=== PATIENT | female | born 1945 | race Caucasian/White ===

== ENCOUNTER → 2023-07-13 12:51 | Outpatient (REF) | payer MEDICARE, OTHER, SELFPAY | LOC: HWWDC 12:51 | PROVIDERS: ATTENDING PHYSICIAN Family Medicine; REFERRING PHYSICIAN Obstetrics & Gynecology Gynecology | DX: Z12.31 Encounter for screening mammogram for malignant neoplasm of breast (principal) | CPT/HCPCS: 77063; 77067 ==

== ENCOUNTER → 2023-12-08 04:00 | Outpatient (REF) | payer MEDICARE, OTHER, SELFPAY | LOC: DHSLP 04:00 | PROVIDERS: ATTENDING PHYSICIAN Family Medicine | DX: G47.33 Obstructive sleep apnea (adult) (pediatric) (principal) | CPT/HCPCS: 95800 ==

== ENCOUNTER → 2024-07-08 12:56 | Outpatient (REF) | payer MEDICARE, OTHER, SELFPAY | LOC: PAVMRI 12:56 | PROVIDERS: ATTENDING PHYSICIAN Orthopaedic Surgery Hand Surgery; FAMILY PHYSICIAN Family Medicine | DX: M19.011 Primary osteoarthritis, right shoulder (principal) | CPT/HCPCS: 73221 ==

== ENCOUNTER → 2024-08-02 14:45 | Outpatient (REF) | payer MEDICARE, OTHER, SELFPAY | LOC: HWWDC 14:45 | PROVIDERS: ATTENDING PHYSICIAN Family Medicine; REFERRING PHYSICIAN Obstetrics & Gynecology Gynecology | DX: Z78.0 Asymptomatic menopausal state (principal); Z12.31 Encounter for screening mammogram for malignant neoplasm of breast | CPT/HCPCS: 77063; 77067; 77080 ==

== ENCOUNTER → 2024-08-14 10:04 | Outpatient (REF) | payer MEDICARE, OTHER, SELFPAY | LOC: HWRCS 10:04 | PROVIDERS: ATTENDING PHYSICIAN Nurse Practitioner Adult Health | DX: R94.121 Abnormal vestibular function study (principal) | CPT/HCPCS: 93306 ==

== ENCOUNTER → 2024-08-26 07:52 | Outpatient (REF) | payer MEDICARE, OTHER, SELFPAY | LOC: RAD 07:52 | PROVIDERS: ATTENDING PHYSICIAN Orthopaedic Surgery Hand Surgery; FAMILY PHYSICIAN Family Medicine | DX: M19.011 Primary osteoarthritis, right shoulder (principal) | CPT/HCPCS: 73200 ==

== ENCOUNTER 2024-08-30 06:39 | Day surgery (SDC) | payer MEDICARE, OTHER, SELFPAY ==
[2024-08-08 14:09] LABS: Hematocrit 41.5 % (37.0-47.0); Hemoglobin 13.4 g/dL (12.0-16.0); Mean Corp Hgb Conc. 32.3 g/dL (33.0-37.0); Mean Corpuscular Hgb 28.6 pg (27.0-31.0); Mean Corpuscular Volume 88.5 fL (81.0-99.0); Mean Platelet Volume 9.9 fL (7.4-10.4); Platelet Count 232 10^3/uL (130-400); Red Blood Cell Count 4.69 10^6/uL (4.20-5.40); Red Cell Dist. Width 13.9 % (11.5-14.5); White Blood Cell Count 8.8 10^3/uL (4.8-10.8)
[2024-08-08 14:12] VITALS: BMI 36.3
[2024-08-08 14:33] LABS: ALT (SGPT) 18 U/L (0-35); AST (SGOT) 25 U/L (14-36); Albumin 4.5 g/dl (3.5-5.0); Alkaline Phosphatase 84 U/L (38-126); Blood Urea Nitrogen 23 mg/dl (7-17); Calcium 9.8 mg/dl (8.4-10.2); Carbon Dioxide 27 mmol/L (22-30); Chloride 104 mmol/L (98-107); Estimated Creatinine Clearance 55 ml/min; Glucose 100 mg/dl (70-99); Potassium 3.9 mmol/L (3.5-5.1); Sodium 142 mmol/L (135-145); Total Bilirubin 0.7 mg/dl (0.2-1.3); Total Protein 7.2 g/dl (6.3-8.2); eGFR > 60.00
[2024-08-08 15:03] LABS: Glycohemoglobin (HgbA1c) 5.6 % (4.0-5.6)
[2024-08-08 18:24] VITALS: BMI 36.3
--- NOTE | 2024-08-09 13:57 | PTCARENOTE ---
Patients 08/08 ECG abnormal- reviewed by Dr. Monterroso- no additional interventions required.
[2024-08-30] VITALS (9 sets, daily range): BP systolic 121–147; BP diastolic 55–74
[2024-08-30] MEDS: CELEBREX 200 MG PO (12:51)
[2024-08-30] MEDS: TYLENOL 1000 MG PO (12:52)
[2024-08-30] MEDS: NORMOSOL-R/PLASMALYTE-A 1000 IV (12:53)
--- NOTE | 2024-08-30 15:18 | W.DS.TRANS ---
DC Summary - [employer]
-
Discharge Instructions:
Sleep Apnea Risk Intermediate
Discharge Diagnosis/Procedures R WAYNE Mao 08/30/24
Diet As tolerated
Activity No strenuous activity
Driving Restrictions No driving
Instructions:
Stand-Alone Forms: SDS Total Shoulder D/C Inst.
Changes to Home Medications: Yes
Discharge Medications:
DC Medications w/original date entered in [facility]
albuterol sulfate 90 mcg/actuation aerosol inhaler 2 puff inhalation [id number] PRN SOB,Wheezes 08/07/24
amlodipine 10 mg tablet 5 mg PO HS 08/07/24
cholecalciferol (vitamin D3) 25 mcg (1,000 unit) tablet (Vitamin D3) 25 mcg PO HS 08/07/24
fexofenadine 180 mg tablet 180 mg PO DAILY 08/07/24
lisinopril 20 mg-hydrochlorothiazide 25 mg tablet 1 tab PO HS 08/07/24
pravastatin 40 mg tablet 40 mg PO HS 08/07/24
sertraline 50 mg tablet (Zoloft) 50 mg PO HS 08/07/24
dexamethasone 4 mg tablet 4 mg PO BID Anti-inflammatory #7 tabs 08/08/24
doxycycline monohydrate 100 mg capsule 100 mg PO BID #7 caps 08/08/24
famotidine 20 mg tablet (Pepcid) 20 mg PO HS #30 tabs 08/08/24
hydrocodone 5 mg-acetaminophen 325 mg tablet 1 - 2 tab PO Q6H PRN moderate-severe pain #30 tabs 08/08/24
mupirocin 2 % topical ointment 1 applic intranasal BID #1 tube 08/08/24
ondansetron HCl 4 mg tablet 4 mg PO Q6H PRN nausea and vomiting #30 tabs 08/08/24
Saccharomyces boulardii 250 mg capsule (Florastor) 250 mg PO BID #1 cap 08/30/24
acetaminophen 325 mg tablet (Tylenol) 650 mg (2 x 325 mg) PO QID #1 tab 08/30/24
aspirin 325 mg tablet 325 mg PO DAILY blood clot prevention #1 tab 08/30/24
docusate sodium 100 mg capsule (Colace) 100 mg PO BID stool softner #1 cap 08/30/24
fluticasone fur. 100 mcg-umeclid 62.5 mcg-vilant 25 mcg inhalat.powder (Trelegy Ellipta) 1 inh inhalation .QHS 08/30/24
magnesium hydroxide 400 mg/5 mL oral suspension (Milk of Magnesia) 30 ml PO HS PRN Constipation #1 mL 08/30/24
sennosides 8.6 mg tablet (Senokot) 17.2 mg (2 x 8.6 mg) PO BID laxative #2 tabs 08/30/24
Home Medication Changes
dexamethasone 4 mg tablet 4 mg PO BID Anti-inflammatory #7 tabs 08/08/24
doxycycline monohydrate 100 mg capsule 100 mg PO BID #7 caps 08/08/24
famotidine 20 mg tablet (Pepcid) 20 mg PO HS #30 tabs 08/08/24
hydrocodone 5 mg-acetaminophen 325 mg tablet 1 - 2 tab PO Q6H PRN moderate-severe pain #30 tabs 08/08/24
mupirocin 2 % topical ointment 1 applic intranasal BID #1 tube 08/08/24
ondansetron HCl 4 mg tablet 4 mg PO Q6H PRN nausea and vomiting #30 tabs 08/08/24
Saccharomyces boulardii 250 mg capsule (Florastor) 250 mg PO BID #1 cap 08/30/24
acetaminophen 325 mg tablet (Tylenol) 650 mg (2 x 325 mg) PO QID #1 tab 08/30/24
aspirin 325 mg tablet 325 mg PO DAILY blood clot prevention #1 tab 08/30/24
docusate sodium 100 mg capsule (Colace) 100 mg PO BID stool softner #1 cap 08/30/24
fluticasone fur. 100 mcg-umeclid 62.5 mcg-vilant 25 mcg inhalat.powder (Trelegy Ellipta) 1 inh inhalation .QHS 08/30/24
magnesium hydroxide 400 mg/5 mL oral suspension (Milk of Magnesia) 30 ml PO HS PRN Constipation #1 mL 08/30/24
sennosides 8.6 mg tablet (Senokot) 17.2 mg (2 x 8.6 mg) PO BID laxative #2 tabs 08/30/24
Pending Results: No
[2024-08-30] MEDS: ANCEF 5 IV (19:39)
[2024-08-30] MEDS: ROXICODONE 5 MG PO (19:55)
== END 2024-08-30 20:00 | disposition home or self-care (01) ==
LOC: SDS 06:39
PROVIDERS: ATTENDING PHYSICIAN Orthopaedic Surgery Hand Surgery; FAMILY PHYSICIAN Nurse Practitioner Acute Care; REFERRING PHYSICIAN Nurse Practitioner Adult Health
DX: M19.011 Primary osteoarthritis, right shoulder (principal)
CPT/HCPCS: 23472; 36415; 73020; 80053; 83036; 85027; 87070; 93005; C1713; C1776